=== PATIENT | male | born 1955 | race Caucasian/White ===

== ENCOUNTER 2017-11-12 11:15 | Inpatient (IN) | payer OTHER ==
[~2017-11-12] VITALS: Ht 175.3 cm; Wt 90.7 kg
[2017-11-12] MEDS ORDERED: LOSARTAN-HCTZ1 EAC1 PO (15:49)
== END 2017-11-22 14:23 | DRG 470 ==
LOC: O/R 11-19 09:24 → SURH 11-19 09:24
PROVIDERS: Orthopaedic Surgery
PROC: 0SRD0J9 Replacement of Left Knee Joint with Synthetic Substitute, Cemented, Open Approach (ICD-10-PCS; principal; 2017-11-19 13:30)
DX: M17.12 Unilateral primary osteoarthritis, left knee (principal); D62 Acute posthemorrhagic anemia; M85.462 Solitary bone cyst, left tibia and fibula; M65.862 Other synovitis and tenosynovitis, left lower leg; I10 Essential (primary) hypertension

== ENCOUNTER 2019-01-20 12:28 | Inpatient (IN) | payer OTHER ==
[~2019-01-20] VITALS: Ht 175.3 cm; Wt 89.4 kg
[~2019-01-20 12:28] MED LIST: LOSARTAN-HCTZ1 EAC1 PO
== END 2019-01-22 10:57 | disposition home or self-care (01) | DRG 440 ==
LOC: ER 12:28 → SURG 19:28
PROVIDERS: ADMIT Internal Medicine
PROC: BW40ZZZ Ultrasonography of Abdomen (ICD-10-PCS; principal; 2019-01-20)
DX: K85.80 Other acute pancreatitis without necrosis or infection (principal); K82.4 Cholesterolosis of gallbladder; R10.13 Epigastric pain

== ENCOUNTER 2019-06-11 11:11 | Emergency (ER) | payer OTHER ==
[~2019-06-11] VITALS: Ht 175.3 cm; Wt 96.2 kg
[2019-06-11] MEDS ORDERED: KETO10TA2 PO (14:51)
[2019-06-11] MEDS ORDERED: ORPHENADRINE C100 MG PO (14:51)
== END 2019-06-11 15:13 | disposition home or self-care (01) ==
LOC: ER 11:11
DX: S43.492A Other sprain of left shoulder joint, initial encounter (principal); M75.82 Other shoulder lesions, left shoulder; W01.198A Fall on same level from slipping, tripping and stumbling with subsequent striking against other object, initial encounter; Y93.89 Activity, other specified; Y92.89 Other specified places as the place of occurrence of the external cause; Y99.8 Other external cause status

== ENCOUNTER 2019-06-11 15:13 | Outpatient (CLI) | payer OTHER ==
[~2019-06-11 15:13] MED LIST changes: +KETO10TA2 PO; +ORPHENADRINE C100 MG PO
== END 2019-06-11 16:00 | disposition home or self-care (01) ==
LOC: MRI 15:13
DX: M25.561 Pain in right knee (principal); M25.562 Pain in left knee
CPT/HCPCS: 73721

== ENCOUNTER 2019-06-22 10:46 | Outpatient (CLI) | payer OTHER | END 2019-06-22 10:51 | disposition home or self-care (01) | LOC: RAD 10:46 | DX: R07.89 Other chest pain (principal) ==